=== PATIENT | male | born 1970 | race Caucasian/White ===

== ENCOUNTER 2023-09-03 13:53 | Inpatient (IN) | payer MEDICARE, MEDICAID ==
[~2023-09-03] VITALS: Ht 179.1 cm; Wt 85.4 kg
[2023-09-03] MEDS ORDERED: ALBUTEROL SULF 2.5 MG/0.5ML(0.5%) NEB SOLN NEB PRN (15:30)
[2023-09-03] MEDS ORDERED: HYDROcodone-ACET 5/325MG TAB PO PRN (15:30)
[2023-09-03] MEDS ORDERED: MORPHINE SULFATE INJ 2 MG/ml SYRG IV PRN ×2 (15:30)
[2023-09-03] MEDS ORDERED: ONDANSETRON HCL 4 MG/2 ML VIAL IV PRN (15:30)
[2023-09-03] MEDS ORDERED: NITROGLYCERIN 0.4 MG SL TAB SL PRN (15:30)
[2023-09-03] MEDS ORDERED: IPRATROPIUM BROM 0.5 MG/2.5ML INH SOL NEB PRN (15:30)
[2023-09-03] MEDS ORDERED: DEXTROSE (50%) 50ML SYRG IV PRN (15:30)
[2023-09-03] MEDS ORDERED: DOCUSATE SOD 100 MG CAP PO PRN (15:30)
[2023-09-03] MEDS ORDERED: ACETAMINOPHEN 500 MG TAB PO PRN (15:30)
[2023-09-03 16:30] VITALS: O2SAT 96
[2023-09-03] MEDS ORDERED: TRAV0.0013 EACHEYE (16:52)
[2023-09-03] MEDS ORDERED: SEMA7TAB2 PO (16:52)
[2023-09-03] MEDS ORDERED: [UNRECOGNIZED DRUG - CODE] IV (16:52)
[2023-09-03] MEDS ORDERED: METF-372 PO (16:52)
[2023-09-03] MEDS ORDERED: LISI10TA34 PO (16:52)
[2023-09-03] MEDS ORDERED: GAB100C PO (16:52)
[2023-09-03] MEDS ORDERED: EMPA1TAB3 PO (16:52)
[2023-09-03 17:00] VITALS: BP 121/68; PULSE 98; RESP 18; TEMP 98.6; O2SAT 97
[2023-09-03] MEDS: InsuLIN REG 1unit/0.01ml Soln (100units/ml) SC SCH (17:00)
[2023-09-03 17:18] VITALS: BP 116/54; PULSE 100; RESP 20; TEMP 99.4; O2SAT 94
[2023-09-03 17:58] LABS: Hematocrit 30.9 % (41.0-53.0); Hemoglobin 9.9 g/dL (13.5-17.5); Mean Corpuscular Hemoglobin 26.7 pg (28.0-32.0); Mean Corpuscular Volume 83.4 fL (80.0-100.0); Red Cell Distribution Width 15.3 % (11.8-14.3)
[2023-09-03 18:09] LABS: Alanine Aminotransferase 50 U/L (7-40); Albumin 3.3 g/dL (3.2-4.8); Alkaline Phosphatase 211 U/L (46-116); Anion Gap 12 (5-15); Aspartate Aminotransferase 54 U/L (13-40); BUN/Creatinine Ratio 19.5 (10.0-20.0); Bilirubin, Total 0.4 mg/dL (0.2-1.0); Blood Urea Nitrogen 39 mg/dL (9-23); Calcium 8.1 mg/dL (8.5-10.1); Carbon Dioxide 18 mmol/L (20-30); Chloride 97 mmol/L (98-107); Glucose 193 mg/dL (74-106); Potassium 3.4 mmol/L (3.5-5.1); Sodium 127 mmol/L (136-145); Total Protein 5.7 g/dL (5.7-8.2)
[2023-09-03 18:10] LABS: INR 1.17 (0.9-1.15); Partial Thromboplastin Time 37.4 SEC (24.5-34.5); Prothrombin Time 12.2 sec (9.3-11.8)
[2023-09-03 18:22] LABS: White Blood Cell 34.3 10^3/uL (4.4-10.8)
[2023-09-03 18:24] LABS: Basophils % (manual) 0 (0.0-2.0); Blast Cells 0; Eosinophils % (manual) 0 (0-7); Metamyelocytes % 0; Myelocytes % 0; Promyelocytes % 0; Reactive Lymphocytes 0
[2023-09-03 18:36] LABS: Erythrocyte Sedimentation Rate 97 mm/hr (0-20)
[2023-09-03] MEDS: ACCU-CHEK COMFORT CURVE STRIP VI SCH (18:57)
[2023-09-03 18:59] LABS: Band Neutrophils % (manual) 9; Lymphocytes % (manual) 14 (10.0-50.0); Monocytes % (manual) 9 (0-12); Platelet Estimate Adequate
[2023-09-03 20:00] VITALS: PULSE 99; RESP 22; O2SAT 94
[2023-09-03 21:00] VITALS: BP 114/60; PULSE 99; RESP 22; TEMP 99.6; O2SAT 94
[2023-09-03] MEDS: CLINDAMYCIN 300MG IV 50 ML IV SCH (21:29)
[2023-09-03] MEDS: metroNIDAZOLE 500 MG TAB PO SCH (21:30)
[2023-09-03 22:57] VITALS: O2SAT 95
[2023-09-04] VITALS (9 sets, daily range): BP systolic 112–131; BP diastolic 60–76; PULSE 68–101; RESP 12–20; TEMP 97–98.9; O2SAT 94–98
[2023-09-04] MEDS: SODIUM CHLORIDE 0.9% 1,000 ML IV SCH (09:45)
[2023-09-04] MEDS: cefTRIAXone 1GM/50ML D5W 50 ML IV SCH (09:46)
[2023-09-04] MEDS: ENOXAPARIN SOD 40 MG/0.4 ML SYRINGE SC SCH (09:47)
[2023-09-04 11:28] LABS: Chloride 101 mmol/L (98-107); Potassium 3.6 mmol/L (3.5-5.1); Sodium 131 mmol/L (136-145)
[2023-09-04 11:29] LABS: Anion Gap 12 (5-15); Carbon Dioxide 18 mmol/L (20-30)
[2023-09-04 11:30] LABS: Calcium 8.1 mg/dL (8.5-10.1)
[2023-09-04 11:34] LABS: BUN/Creatinine Ratio 21.2 (10.0-20.0); Blood Urea Nitrogen 35 mg/dL (9-23); Glucose 161 mg/dL (74-106)
[2023-09-04] MEDS: SOD CHL 0.9%/ KCL 20MEQ 1,000 ML IV SCH (17:36)
[2023-09-05] VITALS (9 sets, daily range): BP systolic 106–128; BP diastolic 59–68; PULSE 92–98; RESP 17–22; TEMP 98–98.9; O2SAT 96–98
[2023-09-05 05:06] LABS: Chloride 103 mmol/L (98-107); Hemoglobin 9.1 g/dL (13.5-17.5); Mean Corpuscular Hemoglobin 27.1 pg (28.0-32.0); Mean Corpuscular Hgb Conc. 32.4 g/dL (32.0-36.0); Mean Corpuscular Volume 83.7 fL (80.0-100.0); Potassium 3.6 mmol/L (3.5-5.1); Red Blood Cells 3.35 10^6/uL (4.5-5.90); Red Cell Distribution Width 15.3 % (11.8-14.3); Sodium 133 mmol/L (136-145); White Blood Cell 27.4 10^3/uL (4.4-10.8)
[2023-09-05 05:07] LABS: Anion Gap 10 (5-15); Carbon Dioxide 20 mmol/L (20-30)
[2023-09-05 05:10] LABS: Basophils % (manual) 0 (0.0-2.0); Blast Cells 0; Metamyelocytes % 0; Myelocytes % 0; Reactive Lymphocytes 0
[2023-09-05 05:12] LABS: Glucose 141 mg/dL (74-106)
[2023-09-05 05:13] LABS: BUN/Creatinine Ratio 20.8 (10.0-20.0); Blood Urea Nitrogen 33 mg/dL (9-23)
[2023-09-05 08:30] LABS: Platelet Estimate Adequate
[2023-09-05 08:34] LABS: Band Neutrophils % (manual) 11; Eosinophils % (manual) 6 (0-7); Lymphocytes % (manual) 3 (10.0-50.0); Monocytes % (manual) 10 (0-12); Promyelocytes % 1
[2023-09-06] VITALS (9 sets, daily range): BP systolic 113–138; BP diastolic 55–68; PULSE 94–101; RESP 16–22; TEMP 98.7–100.2; O2SAT 93–99
[2023-09-06 10:20] LABS: Hematocrit 26.6 % (41.0-53.0); Hemoglobin 8.7 g/dL (13.5-17.5); Mean Corpuscular Hemoglobin 27.3 pg (28.0-32.0); Mean Corpuscular Hgb Conc. 32.5 g/dL (32.0-36.0); Mean Corpuscular Volume 83.9 fL (80.0-100.0); Red Blood Cells 3.18 10^6/uL (4.5-5.90); Red Cell Distribution Width 15.4 % (11.8-14.3); White Blood Cell 26.2 10^3/uL (4.4-10.8)
[2023-09-06 10:21] LABS: Basophils % (manual) 0 (0.0-2.0); Blast Cells 0; Chloride 103 mmol/L (98-107); Eosinophils % (manual) 0 (0-7); Metamyelocytes % 0; Myelocytes % 0; Potassium 3.9 mmol/L (3.5-5.1); Promyelocytes % 0; Reactive Lymphocytes 0; Sodium 132 mmol/L (136-145)
[2023-09-06 10:22] LABS: Anion Gap 10 (5-15); Carbon Dioxide 19 mmol/L (20-30)
[2023-09-06 10:27] LABS: BUN/Creatinine Ratio 16.9 (10.0-20.0); Blood Urea Nitrogen 26 mg/dL (9-23)
[2023-09-06 10:55] LABS: Glucose 268 mg/dL (74-106)
[2023-09-06 11:03] LABS: Band Neutrophils % (manual) 20; Lymphocytes % (manual) 9 (10.0-50.0); Monocytes % (manual) 7 (0-12)
[2023-09-06 11:04] LABS: Platelet Estimate Adequate
[2023-09-06 11:31] LABS: INR 1.35 (0.9-1.15); Prothrombin Time 13.9 sec (9.3-11.8)
[2023-09-07] VITALS (8 sets, daily range): BP systolic 112–128; BP diastolic 66–74; PULSE 90–98; RESP 17–22; TEMP 97.5–98.1; O2SAT 93–97
[2023-09-07 05:05] LABS: Basophils # (auto) 0.2 10 ^3/uL (0-0.2); Hemoglobin 8.6 g/dL (13.5-17.5)
[2023-09-07 05:07] LABS: Basophils % (auto) 0.9 % (0.0-2.0); Eosinophils # (auto) 0.5 10 ^3/uL (0-0.8); Hematocrit 26.3 % (41.0-53.0); Lymphocytes % (auto) 8.6 % (10.0-50.0); Mean Corpuscular Hemoglobin 27.2 pg (28.0-32.0); Mean Corpuscular Hgb Conc. 32.6 g/dL (32.0-36.0); Mean Corpuscular Volume 83.3 fL (80.0-100.0); Monocytes # (auto) 1.7 10 ^3/uL (0-1.3); Monocytes % (auto) 7.7 % (0.0-12.0); Neutrophils # (auto) 18.5 10 ^3/uL (1.6-8.6); Neutrophils % (auto) 80.8 % (37.0-80.0); Red Blood Cells 3.15 10^6/uL (4.5-5.90); Red Cell Distribution Width 15.5 % (11.8-14.3); White Blood Cell 22.8 10^3/uL (4.4-10.8)
[2023-09-07 05:22] LABS: Chloride 104 mmol/L (98-107); Potassium 3.8 mmol/L (3.5-5.1); Sodium 134 mmol/L (136-145)
[2023-09-07 05:23] LABS: Anion Gap 8 (5-15); Carbon Dioxide 22 mmol/L (20-30)
[2023-09-07 05:24] LABS: Calcium 8.1 mg/dL (8.7-10.4)
[2023-09-07 05:28] LABS: Glucose 174 mg/dL (74-106)
[2023-09-07 05:29] LABS: BUN/Creatinine Ratio 15.5 (10.0-20.0); Blood Urea Nitrogen 23 mg/dL (9-23)
[2023-09-08] VITALS (7 sets, daily range): BP systolic 117–125; BP diastolic 68–72; PULSE 93–99; RESP 17–18; TEMP 97–98.9; O2SAT 93–97
[2023-09-08 05:32] LABS: Chloride 105 mmol/L (98-107); Potassium 3.9 mmol/L (3.5-5.1)
[2023-09-08 05:33] LABS: Anion Gap 6 (5-15); Calcium 8.1 mg/dL (8.7-10.4); Carbon Dioxide 22 mmol/L (20-30); Sodium 133 mmol/L (136-145)
[2023-09-08 05:38] LABS: Basophils % (auto) 0.7 % (0.0-2.0); Eosinophils # (auto) 0.4 10 ^3/uL (0-0.8); Hemoglobin 9.1 g/dL (13.5-17.5); Lymphocytes % (auto) 8.2 % (10.0-50.0); Mean Corpuscular Volume 82.9 fL (80.0-100.0); Monocytes # (auto) 1.5 10 ^3/uL (0-1.3)
[2023-09-08 05:39] LABS: BUN/Creatinine Ratio 13.7 (10.0-20.0); Blood Urea Nitrogen 17 mg/dL (9-23); Glucose 191 mg/dL (74-106)
[2023-09-08 05:41] LABS: Basophils # (auto) 0.2 10 ^3/uL (0-0.2); Eosinophils % (auto) 1.9 % (0.0-7.0); Lymphocytes # (auto) 1.7 10 ^3/uL (0.4-5.4); Mean Corpuscular Hemoglobin 26.9 pg (28.0-32.0); Mean Corpuscular Hgb Conc. 32.4 g/dL (32.0-36.0); Monocytes % (auto) 7.1 % (0.0-12.0); Neutrophils # (auto) 17.4 10 ^3/uL (1.6-8.6); Neutrophils % (auto) 82.1 % (37.0-80.0); Red Blood Cells 3.38 10^6/uL (4.5-5.90); Red Cell Distribution Width 15.2 % (11.8-14.3); White Blood Cell 21.2 10^3/uL (4.4-10.8)
[2023-09-09] VITALS (9 sets, daily range): BP systolic 112–145; BP diastolic 67–83; PULSE 93–102; RESP 18–24; TEMP 97.5–98.8; O2SAT 91–96
[2023-09-09 06:43] LABS: Basophils # (auto) 0.2 10 ^3/uL (0-0.2); Basophils % (auto) 0.9 % (0.0-2.0); Eosinophils # (auto) 0.3 10 ^3/uL (0-0.8); Eosinophils % (auto) 1.7 % (0.0-7.0); Hematocrit 27.7 % (41.0-53.0); Hemoglobin 8.9 g/dL (13.5-17.5); Lymphocytes % (auto) 10.5 % (10.0-50.0); Mean Corpuscular Hemoglobin 26.8 pg (28.0-32.0); Mean Corpuscular Hgb Conc. 32.1 g/dL (32.0-36.0); Mean Corpuscular Volume 83.4 fL (80.0-100.0); Monocytes # (auto) 1.4 10 ^3/uL (0-1.3); Neutrophils # (auto) 15.6 10 ^3/uL (1.6-8.6); Neutrophils % (auto) 79.9 % (37.0-80.0); Red Blood Cells 3.33 10^6/uL (4.5-5.90); Red Cell Distribution Width 15.5 % (11.8-14.3); White Blood Cell 19.5 10^3/uL (4.4-10.8)
[2023-09-09 06:53] LABS: Anion Gap 6 (5-15); Calcium 7.8 mg/dL (8.5-10.1); Carbon Dioxide 22 mmol/L (20-30); Chloride 106 mmol/L (98-107); Potassium 3.9 mmol/L (3.5-5.1); Sodium 134 mmol/L (136-145)
[2023-09-09 06:59] LABS: Blood Urea Nitrogen 14 mg/dL (9-23); Glucose 184 mg/dL (74-106)
[2023-09-09 07:48] LABS: Urine Bacteria FEW /hpf (None Seen); Urine Blood Negative /uL (Negative); Urine Clarity Clear (Clear); Urine Color Yellow (Yellow); Urine Protein, UAD 1+ (Negative); Urine Specific Gravity 1.014 (1.001-1.035); Urine Urobilinogen Normal (Negative); Urine WBC 2 /hpf (0 - 3); Urine pH 5.5 (5.0-9.0)
[2023-09-09] MEDS: DAKINS HALF STR 0.25% (NaHypochlorite) 473 ML TOPICAL SOL TOP SCH (10:23)
[2023-09-09] MEDS: ANGIOMAX 250 MG VIAL IV ONE (15:33)
[2023-09-09] MEDS: IODIXANOL 320MG/ML 100ML BTL IV ONE ×2 (15:34→16:11)
[2023-09-09] MEDS: fentaNYL CITRATE 100 MCG/2 ML VL ONE (15:34)
[2023-09-09] MEDS: MIDAZOLAM HCL 2MG/2ML 2ml VIAL (1mg/ml) ONE (15:34)
[2023-09-09] MEDS: SODIUM CHL 0.9% 50 ML ONE (15:34)
[2023-09-09] MEDS: LIDOCAINE 2%HCL (LOCAL ANESTH.) INJ 20ML MDV ONE (15:35)
[2023-09-09] MEDS: ASPirin 325 MG TAB ONE (16:29)
[2023-09-09] MEDS: CLOPIDOGREL BISULFATE 75 MG TAB ONE ×2 (16:29→16:30)
[2023-09-10] VITALS (11 sets, daily range): BP systolic 109–137; BP diastolic 61–79; PULSE 89–102; RESP 16–20; TEMP 97.4–98.2; O2SAT 92–97
[2023-09-10 06:20] LABS: Basophils # (auto) 0.1 10 ^3/uL (0-0.2); Basophils % (auto) 0.9 % (0.0-2.0); Eosinophils # (auto) 0.3 10 ^3/uL (0-0.8); Eosinophils % (auto) 1.8 % (0.0-7.0); Hematocrit 26.6 % (41.0-53.0); Hemoglobin 8.8 g/dL (13.5-17.5); Lymphocytes # (auto) 1.8 10 ^3/uL (0.4-5.4); Lymphocytes % (auto) 12.4 % (10.0-50.0); Mean Corpuscular Hemoglobin 27.5 pg (28.0-32.0); Mean Corpuscular Hgb Conc. 32.9 g/dL (32.0-36.0); Mean Corpuscular Volume 83.5 fL (80.0-100.0); Monocytes # (auto) 1.1 10 ^3/uL (0-1.3); Monocytes % (auto) 7.6 % (0.0-12.0); Neutrophils # (auto) 11.1 10 ^3/uL (1.6-8.6); Neutrophils % (auto) 77.3 % (37.0-80.0); Red Blood Cells 3.18 10^6/uL (4.5-5.90); Red Cell Distribution Width 15.6 % (11.8-14.3); White Blood Cell 14.3 10^3/uL (4.4-10.8)
[2023-09-10 06:24] LABS: Anion Gap 4 (5-15); Calcium 7.8 mg/dL (8.5-10.1); Carbon Dioxide 24 mmol/L (20-30); Chloride 107 mmol/L (98-107); Sodium 135 mmol/L (136-145)
[2023-09-10 06:30] LABS: Glucose 198 mg/dL (74-106)
[2023-09-10 06:31] LABS: BUN/Creatinine Ratio 11.4 (10.0-20.0); Blood Urea Nitrogen 12 mg/dL (9-23)
[2023-09-10] MEDS: CLOPIDOGREL BISULFATE 75 MG TAB PO SCH (08:58)
[2023-09-10] MEDS: ASPirin 81 mg TAB PO SCH (08:58)
[2023-09-10] MEDS: ATORVASTATIN 20 MG TAB PO SCH (21:39)
[2023-09-11] VITALS (11 sets, daily range): BP systolic 111–132; BP diastolic 55–77; PULSE 95–104; RESP 14–21; TEMP 97.9–99.3; O2SAT 93–98
[2023-09-11] MEDS: BUPIVACAINE 0.25% INJ 50ML VIAL ONE (07:05)
[2023-09-11] MEDS: LIDOCAINE W/ EPINEPHRINE 1% 20ML VIAL ONE (07:05)
[2023-09-11] MEDS: LIDOCAINE 1% HCL (LOCAL ANESTH.) INJ 20ML MDV ONE (07:06)
[2023-09-11] MEDS ORDERED: KETAMINE 50mg/ML 1ml syringe ONE (07:27)
[2023-09-11] MEDS ORDERED: ONDANSETRON HCL 4 MG/2 ML VIAL ONE (07:28)
[2023-09-11] MEDS ORDERED: PROPOFOL 10 MG/ML 20 ML IV ONE (07:28)
[2023-09-11] MEDS ORDERED: MIDAZOLAM HCL 2MG/2ML 2ml VIAL (1mg/ml) ONE (07:28)
[2023-09-11] MEDS ORDERED: GLYCOPYRROLATE 0.2 MG/ML 1ML VIAL ONE (07:28)
[2023-09-11] MEDS ORDERED: fentaNYL CITRATE 100 MCG/2 ML VL ONE (07:46)
[2023-09-11] MEDS ORDERED: ONDANSETRON HCL 4 MG/2 ML VIAL IV ONE (08:30)
[2023-09-11] MEDS ORDERED: HYDROmorphone HCL 2 MG/ML VL/or syr IV PRN (08:30)
[2023-09-11 10:47] LABS: Basophils # (auto) 0.1 10 ^3/uL (0-0.2); Eosinophils # (auto) 0.2 10 ^3/uL (0-0.8); Eosinophils % (auto) 1.6 % (0.0-7.0); Lymphocytes # (auto) 1.6 10 ^3/uL (0.4-5.4); Lymphocytes % (auto) 11.1 % (10.0-50.0)
[2023-09-11 10:51] LABS: Basophils % (auto) 0.8 % (0.0-2.0); Hematocrit 27.4 % (41.0-53.0); Mean Corpuscular Hemoglobin 27.2 pg (28.0-32.0); Mean Corpuscular Volume 82.5 fL (80.0-100.0); Monocytes % (auto) 7.1 % (0.0-12.0); Neutrophils # (auto) 11.2 10 ^3/uL (1.6-8.6); Neutrophils % (auto) 79.4 % (37.0-80.0); Red Blood Cells 3.32 10^6/uL (4.5-5.90); Red Cell Distribution Width 15.9 % (11.8-14.3); White Blood Cell 14.1 10^3/uL (4.4-10.8)
[2023-09-11] MEDS: ACCU-CHEK COMFORT CURVE STRIP VI ONE (22:00)
[2023-09-12] VITALS (11 sets, daily range): BP systolic 118–136; BP diastolic 65–75; PULSE 96–103; RESP 18–22; TEMP 37; O2SAT 94–99
[2023-09-12 06:50] LABS: Hemoglobin 7.8 g/dL (13.5-17.5); Mean Corpuscular Hemoglobin 27.1 pg (28.0-32.0); Red Blood Cells 2.88 10^6/uL (4.5-5.90)
[2023-09-12 06:52] LABS: Basophils # (auto) 0.1 10 ^3/uL (0-0.2); Basophils % (auto) 0.8 % (0.0-2.0); Eosinophils # (auto) 0.2 10 ^3/uL (0-0.8); Eosinophils % (auto) 1.5 % (0.0-7.0); Lymphocytes # (auto) 2.2 10 ^3/uL (0.4-5.4); Lymphocytes % (auto) 14.4 % (10.0-50.0); Mean Corpuscular Hgb Conc. 32.5 g/dL (32.0-36.0); Mean Corpuscular Volume 83.2 fL (80.0-100.0); Monocytes # (auto) 1.2 10 ^3/uL (0-1.3); Monocytes % (auto) 7.7 % (0.0-12.0); Neutrophils # (auto) 11.6 10 ^3/uL (1.6-8.6); Neutrophils % (auto) 75.6 % (37.0-80.0); White Blood Cell 15.3 10^3/uL (4.4-10.8)
[2023-09-12 12:27] LABS: INR 1.17 (0.9-1.15); Prothrombin Time 12.2 sec (9.3-11.8)
[2023-09-12 12:40] LABS: Hematocrit 24.9 % (41.0-53.0); Hemoglobin 8.1 g/dL (13.5-17.5)
[2023-09-12 18:25] LABS: Hematocrit 22.5 % (41.0-53.0); Hemoglobin 7.2 g/dL (13.5-17.5)
[2023-09-12 23:45] LABS: Hematocrit 21.9 % (41.0-53.0); Hemoglobin 7.1 g/dL (13.5-17.5)
[2023-09-13] VITALS (12 sets, daily range): BP systolic 109–137; BP diastolic 59–75; PULSE 61–114; RESP 18–22; TEMP 98–98.9; O2SAT 93–98
[2023-09-13 05:31] LABS: Basophils # (auto) 0.1 10 ^3/uL (0-0.2); Basophils % (auto) 1.1 % (0.0-2.0); Eosinophils # (auto) 0.3 10 ^3/uL (0-0.8); Lymphocytes # (auto) 1.9 10 ^3/uL (0.4-5.4); Monocytes # (auto) 1.1 10 ^3/uL (0-1.3); Monocytes % (auto) 8.5 % (0.0-12.0)
[2023-09-13 05:35] LABS: Eosinophils % (auto) 2.4 % (0.0-7.0); Hematocrit 21.1 % (41.0-53.0); Lymphocytes % (auto) 14.9 % (10.0-50.0); Mean Corpuscular Hemoglobin 27.5 pg (28.0-32.0); Mean Corpuscular Hgb Conc. 32.9 g/dL (32.0-36.0); Mean Corpuscular Volume 83.7 fL (80.0-100.0); Neutrophils # (auto) 9.4 10 ^3/uL (1.6-8.6); Neutrophils % (auto) 73.1 % (37.0-80.0); Red Blood Cells 2.52 10^6/uL (4.5-5.90); Red Cell Distribution Width 15.9 % (11.8-14.3); White Blood Cell 12.9 10^3/uL (4.4-10.8)
[2023-09-13 05:50] LABS: Albumin 2.6 g/dL (3.2-4.8); Alkaline Phosphatase 76 U/L (46-116); Anion Gap 9 (5-15); Aspartate Aminotransferase 15 U/L (13-40); BUN/Creatinine Ratio 8.9 (10.0-20.0); Bilirubin, Total 0.3 mg/dL (0.2-1.0); Blood Urea Nitrogen 10 mg/dL (9-23); Calcium 7.8 mg/dL (8.5-10.1); Carbon Dioxide 24 mmol/L (20-30); Chloride 105 mmol/L (98-107); Glucose 158 mg/dL (74-106); Potassium 3.9 mmol/L (3.5-5.1); Sodium 138 mmol/L (136-145); Total Protein 4.5 g/dL (5.7-8.2)
[2023-09-13 05:51] LABS: Alanine Aminotransferase < 9 U/L (7-40)
[2023-09-13 06:03] LABS: Hemoglobin 6.9 g/dL (13.5-17.5)
[2023-09-13 06:36] LABS: Erythrocyte Sedimentation Rate 80 mm/hr (0-20)
[2023-09-13] MEDS: FUROSEMIDE 40 MG/4 ML VIAL IV ONE (17:24)
[2023-09-14] VITALS (12 sets, daily range): BP systolic 116–173; BP diastolic 69–83; PULSE 64–105; RESP 17–20; TEMP 97.3–99.4; O2SAT 93–98
[2023-09-14 07:23] LABS: Basophils # (auto) 0.2 10 ^3/uL (0-0.2); Basophils % (auto) 1.3 % (0.0-2.0); Eosinophils # (auto) 0.3 10 ^3/uL (0-0.8); Eosinophils % (auto) 2.7 % (0.0-7.0); Hematocrit 27.1 % (41.0-53.0); Hemoglobin 9.1 g/dL (13.5-17.5); Lymphocytes # (auto) 1.9 10 ^3/uL (0.4-5.4); Lymphocytes % (auto) 17.2 % (10.0-50.0); Mean Corpuscular Hemoglobin 28.3 pg (28.0-32.0); Mean Corpuscular Hgb Conc. 33.5 g/dL (32.0-36.0); Mean Corpuscular Volume 84.4 fL (80.0-100.0); Monocytes # (auto) 1.1 10 ^3/uL (0-1.3); Monocytes % (auto) 9.4 % (0.0-12.0); Neutrophils # (auto) 7.8 10 ^3/uL (1.6-8.6); Neutrophils % (auto) 69.4 % (37.0-80.0); Red Blood Cells 3.21 10^6/uL (4.5-5.90); Red Cell Distribution Width 15.5 % (11.8-14.3); White Blood Cell 11.3 10^3/uL (4.4-10.8)
[2023-09-14 07:40] LABS: Alanine Aminotransferase 10 U/L (7-40); Alkaline Phosphatase 84 U/L (46-116); Anion Gap 9 (5-15); BUN/Creatinine Ratio 8.5 (10.0-20.0); Blood Urea Nitrogen 9 mg/dL (9-23); Calcium 8.2 mg/dL (8.5-10.1); Carbon Dioxide 25 mmol/L (20-30); Chloride 101 mmol/L (98-107); Glucose 139 mg/dL (74-106); Potassium 3.4 mmol/L (3.5-5.1); Sodium 135 mmol/L (136-145)
[2023-09-14 07:41] LABS: Albumin 2.9 g/dL (3.2-4.8); Aspartate Aminotransferase 22 U/L (13-40); Bilirubin, Total 0.8 mg/dL (0.2-1.0); Total Protein 5.4 g/dL (5.7-8.2)
[2023-09-15] VITALS (10 sets, daily range): BP systolic 126–136; BP diastolic 71–81; PULSE 94–100; RESP 16–19; TEMP 97.5–98.7; O2SAT 94–99
[2023-09-15 06:04] LABS: Basophils # (auto) 0.2 10 ^3/uL (0-0.2); Basophils % (auto) 1.8 % (0.0-2.0); Eosinophils # (auto) 0.3 10 ^3/uL (0-0.8); Hematocrit 28.3 % (41.0-53.0); Hemoglobin 9.6 g/dL (13.5-17.5); Lymphocytes # (auto) 1.6 10 ^3/uL (0.4-5.4); Mean Corpuscular Hemoglobin 28.1 pg (28.0-32.0); Mean Corpuscular Hgb Conc. 33.7 g/dL (32.0-36.0); Mean Corpuscular Volume 83.4 fL (80.0-100.0); Monocytes # (auto) 0.9 10 ^3/uL (0-1.3); Monocytes % (auto) 8.7 % (0.0-12.0); Neutrophils % (auto) 70.5 % (37.0-80.0); Nucleated Red Blood Cells % 0.1 %; Red Cell Distribution Width 15.6 % (11.8-14.3)
[2023-09-15 06:06] LABS: INR 1.09 (0.9-1.15); Partial Thromboplastin Time 34.1 SEC (24.5-34.5); Prothrombin Time 11.4 sec (9.3-11.8)
[2023-09-15 06:17] LABS: Anion Gap 5 (5-15); Carbon Dioxide 29 mmol/L (20-30); Chloride 102 mmol/L (98-107); Potassium 3.5 mmol/L (3.5-5.1); Sodium 136 mmol/L (136-145)
[2023-09-15 06:18] LABS: Calcium 8.5 mg/dL (8.7-10.4)
[2023-09-15 06:23] LABS: BUN/Creatinine Ratio 6.2 (10.0-20.0); Blood Urea Nitrogen 7 mg/dL (9-23); Glucose 130 mg/dL (74-106)
[2023-09-16] VITALS (9 sets, daily range): BP systolic 114–140; BP diastolic 67–82; PULSE 96–101; RESP 18–20; TEMP 97.8–98.5; O2SAT 94–98
[2023-09-16] MEDS ORDERED: MIDAZOLAM HCL 2MG/2ML 2ml VIAL (1mg/ml) ONE (10:02)
[2023-09-16] MEDS ORDERED: PROPOFOL 10 MG/ML 20 ML IV ONE (10:02)
[2023-09-16] MEDS ORDERED: ONDANSETRON HCL 4 MG/2 ML VIAL ONE (10:02)
[2023-09-16] MEDS ORDERED: fentaNYL CITRATE 100 MCG/2 ML VL ONE (10:02)
[2023-09-16] MEDS ORDERED: KETAMINE 50mg/ML 1ml syringe ONE (10:02)
[2023-09-16] MEDS ORDERED: SODIUM CHLORIDE LOCK 10 ML ONE (10:02)
[2023-09-16] MEDS ORDERED: MORPHINE SULFATE INJ 2 MG/ml SYRG IV PRN (11:45)
[2023-09-16] MEDS ORDERED: METOCLOPRAMIDE HCL 5MG/ml INJ 2ml VIAL IV ONE (11:45)
[2023-09-16] MEDS ORDERED: HYDROmorphone HCL 2 MG/ML VL/or syr IV PRN ×2 (11:45)
[2023-09-16] MEDS ORDERED: LIDOCAINE 1% (LOCAL ANESTH.) PF 5ml SDV ONE (12:07)
[2023-09-16] MEDS ORDERED: BUPIVACAINE HCL 50 ML ONE (12:08)
[2023-09-16] MEDS ORDERED: ceFAZolin 2 GM/D5W50ml 50 ML IV ONE (13:04)
[2023-09-16] MEDS: LIDOCAINE 1% HCL (LOCAL ANESTH.) INJ 20ML MDV ONE (13:20)
[2023-09-17] VITALS (14 sets, daily range): BP systolic 96–135; BP diastolic 55–67; PULSE 76–109; RESP 16–21; TEMP 97.8–100; O2SAT 90–97
[2023-09-17 05:44] LABS: Basophils # (auto) 0.2 10 ^3/uL (0-0.2); Basophils % (auto) 1.4 % (0.0-2.0); Eosinophils # (auto) 0.2 10 ^3/uL (0-0.8); Mean Corpuscular Volume 84.9 fL (80.0-100.0); Neutrophils # (auto) 8.9 10 ^3/uL (1.6-8.6)
[2023-09-17 05:48] LABS: Eosinophils % (auto) 1.4 % (0.0-7.0); Hematocrit 19.8 % (41.0-53.0); Lymphocytes # (auto) 1.6 10 ^3/uL (0.4-5.4); Lymphocytes % (auto) 13.7 % (10.0-50.0); Mean Corpuscular Hemoglobin 28.3 pg (28.0-32.0); Mean Corpuscular Hgb Conc. 33.4 g/dL (32.0-36.0); Monocytes % (auto) 8.3 % (0.0-12.0); Neutrophils % (auto) 75.2 % (37.0-80.0); Red Blood Cells 2.34 10^6/uL (4.5-5.90); Red Cell Distribution Width 15.7 % (11.8-14.3); White Blood Cell 11.9 10^3/uL (4.4-10.8)
[2023-09-17 06:01] LABS: Anion Gap 6 (5-15); Carbon Dioxide 29 mmol/L (20-30); Chloride 101 mmol/L (98-107); Potassium 3.7 mmol/L (3.5-5.1); Sodium 136 mmol/L (136-145)
[2023-09-17 06:02] LABS: Calcium 7.8 mg/dL (8.5-10.1)
[2023-09-17 06:07] LABS: BUN/Creatinine Ratio 7.4 (10.0-20.0); Blood Urea Nitrogen 9 mg/dL (9-23); Glucose 164 mg/dL (74-106)
[2023-09-17 07:31] LABS: Hemoglobin 6.6 g/dL (13.5-17.5)
[2023-09-18] VITALS (15 sets, daily range): BP systolic 108–129; BP diastolic 67–82; PULSE 91–105; RESP 15–20; TEMP 97.4–98.9; O2SAT 93–100
[2023-09-18 05:54] LABS: Basophils # (auto) 0.2 10 ^3/uL (0-0.2); Eosinophils # (auto) 0.4 10 ^3/uL (0-0.8); Hemoglobin 7.8 g/dL (13.5-17.5); Lymphocytes # (auto) 2.2 10 ^3/uL (0.4-5.4)
[2023-09-18 05:57] LABS: Basophils % (auto) 1.7 % (0.0-2.0); Hematocrit 23.1 % (41.0-53.0); INR 1.08 (0.9-1.15); Lymphocytes % (auto) 24.2 % (10.0-50.0); Mean Corpuscular Hemoglobin 28.6 pg (28.0-32.0); Mean Corpuscular Hgb Conc. 33.6 g/dL (32.0-36.0); Mean Corpuscular Volume 84.9 fL (80.0-100.0); Monocytes % (auto) 10.8 % (0.0-12.0); Neutrophils # (auto) 5.5 10 ^3/uL (1.6-8.6); Neutrophils % (auto) 59.3 % (37.0-80.0); Partial Thromboplastin Time 29.9 SEC (24.5-34.5); Prothrombin Time 11.4 sec (9.3-11.8); Red Blood Cells 2.72 10^6/uL (4.5-5.90); Red Cell Distribution Width 16.1 % (11.8-14.3); White Blood Cell 9.3 10^3/uL (4.4-10.8)
[2023-09-18 06:04] LABS: Anion Gap 4 (5-15); Carbon Dioxide 30 mmol/L (20-30); Chloride 102 mmol/L (98-107); Potassium 3.7 mmol/L (3.5-5.1); Sodium 136 mmol/L (136-145)
[2023-09-18 06:05] LABS: Calcium 7.8 mg/dL (8.5-10.1)
[2023-09-18 06:10] LABS: BUN/Creatinine Ratio 7.9 (10.0-20.0); Blood Urea Nitrogen 10 mg/dL (9-23); Glucose 187 mg/dL (74-106)
[2023-09-18] MEDS ORDERED: MIDAZOLAM HCL 2MG/2ML 2ml VIAL (1mg/ml) ONE (12:11)
[2023-09-18] MEDS ORDERED: fentaNYL CITRATE 100 MCG/2 ML VL ONE (12:11)
[2023-09-18] MEDS ORDERED: LIDOCAINE 1% HCL (LOCAL ANESTH.) INJ 20ML MDV ONE (12:13)
[2023-09-18] MEDS ORDERED: BUPIVACAINE HCL 0.25% P/F 10 ML VIAL ONE ×2 (12:13)
[2023-09-18] MEDS ORDERED: MORPHINE SULFATE 4 MG/ML SYR/VIAL IV PRN (12:30)
[2023-09-18] MEDS ORDERED: MIDAZOLAM HCL 2MG/2ML 2ml VIAL (1mg/ml) IV PRN (12:30)
[2023-09-18] MEDS ORDERED: ONDANSETRON HCL 4 MG/2 ML VIAL IV ONE (12:30)
[2023-09-18] MEDS ORDERED: HYDROmorphone HCL 2 MG/ML VL/or syr IV PRN (12:30)
[2023-09-18] MEDS ORDERED: LABETALOL HCL 5 MG/ML 4ML SYRINGE IV PRN (12:30)
[2023-09-18] MEDS ORDERED: ePHEDrine SULFATE 50 MG/ML AMP IV PRN (12:30)
[2023-09-18] MEDS ORDERED: PROPOFOL 10 MG/ML 20 ML IV ONE (12:44)
[2023-09-18] MEDS: VANCOMYCIN HCL 1000 MG VL ONE (14:19)
[2023-09-19] VITALS (9 sets, daily range): BP systolic 113–141; BP diastolic 66–89; PULSE 97–104; RESP 18–20; TEMP 97.4–98.4; O2SAT 98–100
[2023-09-19 06:23] LABS: Chloride 99 mmol/L (98-107); Potassium 3.8 mmol/L (3.5-5.1); Sodium 134 mmol/L (136-145)
[2023-09-19 06:24] LABS: Anion Gap 9 (5-15); Carbon Dioxide 26 mmol/L (20-30)
[2023-09-19 06:25] LABS: Calcium 8.4 mg/dL (8.7-10.4)
[2023-09-19 06:29] LABS: BUN/Creatinine Ratio 12.4 (10.0-20.0); Basophils # (auto) 0 10 ^3/uL (0-0.2); Blood Urea Nitrogen 13 mg/dL (9-23); Eosinophils # (auto) 0 10 ^3/uL (0-0.8); Glucose 231 mg/dL (74-106); Hemoglobin 8.4 g/dL (13.5-17.5); Lymphocytes # (auto) 1.2 10 ^3/uL (0.4-5.4); Mean Corpuscular Hgb Conc. 33.5 g/dL (32.0-36.0); Neutrophils # (auto) 6.8 10 ^3/uL (1.6-8.6)
[2023-09-19 06:35] LABS: Basophils % (auto) 0.2 % (0.0-2.0); Lymphocytes % (auto) 14.3 % (10.0-50.0); Mean Corpuscular Hemoglobin 28.4 pg (28.0-32.0); Mean Corpuscular Volume 84.8 fL (80.0-100.0); Monocytes # (auto) 0.6 10 ^3/uL (0-1.3); Monocytes % (auto) 6.6 % (0.0-12.0); Neutrophils % (auto) 78.9 % (37.0-80.0); Nucleated Red Blood Cells % 0.1 %; Red Blood Cells 2.94 10^6/uL (4.5-5.90); Red Cell Distribution Width 16.5 % (11.8-14.3); White Blood Cell 8.7 10^3/uL (4.4-10.8)
[2023-09-19] MEDS: LINEZOLID 600MG/300ML 300 ML IV SCH (11:50)
[2023-09-20] VITALS (7 sets, daily range): BP systolic 110–126; BP diastolic 65–74; PULSE 99–103; RESP 18–20; TEMP 97.9–98.3; O2SAT 94–99
[2023-09-21 00:59] VITALS: BP 114/66; PULSE 101; RESP 17; TEMP 98.1; O2SAT 94
[2023-09-21 05:00] VITALS: BP 116/74; PULSE 97; RESP 18; TEMP 98.7; O2SAT 100
[2023-09-21 08:00] VITALS: BP 117/66; PULSE 100; RESP 17; TEMP 98.6; O2SAT 94
[2023-09-21] MEDS: DAPTOmycin 500 MG in SODIUM CHL 0.9% 50 ML IV SCH (13:44)
[2023-09-21 17:00] VITALS: BP 116/68; PULSE 97; RESP 20; TEMP 98.1; O2SAT 100
[2023-09-21 20:00] VITALS: BP 117/66; PULSE 100; PULSE 98; RESP 17; RESP 18; TEMP 98.6; O2SAT 95
[2023-09-21 21:00] VITALS: BP 123/72; PULSE 98; RESP 18; TEMP 98.2; O2SAT 95
[2023-09-22 01:00] VITALS: BP 138/88; PULSE 102; RESP 16; TEMP 98.7; O2SAT 95
[2023-09-22 05:00] VITALS: BP 114/56; PULSE 101; RESP 16; TEMP 98.5; O2SAT 96
[2023-09-22 08:00] VITALS: BP 130/75; PULSE 98; RESP 18; TEMP 97.9; O2SAT 97
[2023-09-22 09:27] VITALS: BP 130/75; PULSE 98; RESP 18; TEMP 97.9; O2SAT 97
[2023-09-22 12:13] VITALS: BP 131/72; PULSE 94; RESP 19; TEMP 97.8; O2SAT 99
[2023-09-22 13:00] VITALS: BP 131/72; PULSE 94; RESP 19; TEMP 97.8; O2SAT 99
== END 2023-09-22 13:30 | DRG 853 ==
LOC: CENTRAL 15:25
PROVIDERS: ADMIT Nurse Practitioner Acute Care; ATTEND Nurse Practitioner Acute Care
PROC: 0Y9N0ZZ Drainage of Left Foot, Open Approach (ICD-10-PCS; 2023-09-04)
PROC: 047N3Z1 Dilation of Left Popliteal Artery using Drug-Coated Balloon, Percutaneous Approach (ICD-10-PCS; principal; 2023-09-09)
PROC: 04FN3ZZ Fragmentation of Left Popliteal Artery, Percutaneous Approach (ICD-10-PCS; 2023-09-09)
PROC: B41G1ZZ Fluoroscopy of Left Lower Extremity Arteries using Low Osmolar Contrast (ICD-10-PCS; 2023-09-09)
PROC: B41F1ZZ Fluoroscopy of Right Lower Extremity Arteries using Low Osmolar Contrast (ICD-10-PCS; 2023-09-09)
PROC: 0Y6N0Z9 Detachment at Left Foot, Partial 1st Ray, Open Approach (ICD-10-PCS; 2023-09-11)
PROC: 0Y6N0ZB Detachment at Left Foot, Partial 2nd Ray, Open Approach (ICD-10-PCS; 2023-09-11)
PROC: 0Y6N0ZC Detachment at Left Foot, Partial 3rd Ray, Open Approach (ICD-10-PCS; 2023-09-11)
PROC: 0Y6N0ZD Detachment at Left Foot, Partial 4th Ray, Open Approach (ICD-10-PCS; 2023-09-11)
PROC: 0Y6N0ZF Detachment at Left Foot, Partial 5th Ray, Open Approach (ICD-10-PCS; 2023-09-11)
PROC: 30233N1 Transfusion of Nonautologous Red Blood Cells into Peripheral Vein, Percutaneous Approach (ICD-10-PCS; 2023-09-13)
PROC: 0QDP0ZZ Extraction of Left Metatarsal, Open Approach (ICD-10-PCS; 2023-09-18)
DX: A41.9 Sepsis, unspecified organism (principal); N17.0 Acute kidney failure with tubular necrosis; E11.52 Type 2 diabetes mellitus with diabetic peripheral angiopathy with gangrene; M86.8X7 Other osteomyelitis, ankle and foot; L03.116 Cellulitis of left lower limb; N39.0 Urinary tract infection, site not specified; L02.416 Cutaneous abscess of left lower limb; E11.69 Type 2 diabetes mellitus with other specified complication; E11.65 Type 2 diabetes mellitus with hyperglycemia; E11.622 Type 2 diabetes mellitus with other skin ulcer; H54.8 Legal blindness, as defined in USA; E78.5 Hyperlipidemia, unspecified; I12.9 Hypertensive chronic kidney disease with stage 1 through stage 4 chronic kidney disease, or unspecified chronic kidney disease; E11.319 Type 2 diabetes mellitus with unspecified diabetic retinopathy without macular edema; E11.22 Type 2 diabetes mellitus with diabetic chronic kidney disease; I70.222 Atherosclerosis of native arteries of extremities with rest pain, left leg; L97.529 Non-pressure chronic ulcer of other part of left foot with unspecified severity; D63.8 Anemia in other chronic diseases classified elsewhere; E11.621 Type 2 diabetes mellitus with foot ulcer; N18.9 Chronic kidney disease, unspecified; Z82.49 Family history of ischemic heart disease and other diseases of the circulatory system; Z87.891 Personal history of nicotine dependence; Z83.3 Family history of diabetes mellitus; E11.42 Type 2 diabetes mellitus with diabetic polyneuropathy; Z79.84 Long term (current) use of oral hypoglycemic drugs
CPT/HCPCS: 36415; 36430; 37224; 71045; 73630; 73718; 75716; 80048; 80053; 81001; 82550; 82962; 83036; 83880; 85007; 85014; 85018; 85025; 85027; 85049; 85610; 85652; 85730; 86850; 86900; 86901; 86920; 87040; 87070; 87075; 87077; 87081; 87186; 87205; 93005; 93306; 93925; 97110; 97116; 97163; 99152; C1769; C2623; G0378; J1815; J2001; J2250; J2405; J2704; J3490; Q9967